=== PATIENT | male | born 1990 | race American Indian/Alaskan Native ===

== ENCOUNTER 2016-11-11 14:39 | Emergency (ER) | payer BC ==
[2016-11-11 15:10] VITALS: TEMP 99; BMI 27.1
[2016-11-11 15:58] LABS: BASO # 0.01 K/mm3 (0.0-2.0); BASO % 0.1 % (0.0-3.0); EOS # 0.1 (0.0-0.7); EOS % 1.2 % (1.5-5.0); GRAN # 8.67 (1.4-6.5); GRAN % 76.8 % (50.0-68.0); HEMATOCRIT 40.5 % (42.0-52.0); LYMPH # 1.8 (1.2-3.4); LYMPH % 15.9 % (22.0-35.0); MEAN CELL VOLUME 87.1 fl (80.0-105.0); MEAN CORPUSCULAR HGB CONC 35.6 g/dl (31.0-37.0); MEAN PLATELET VOLUME 9.4 fl (7.0-11.0); MONO # 0.7 (0.1-0.6); WHITE BLOOD COUNT 11.3 10^3/ul (4.5-11.0)
--- NOTE | 2016-11-11 16:05 | ED PDOC ---
Arrival/HPI <Pradeep Chávez - Last Filed: 11/11/16 16:45> <LynneAnthony roberto Sukumar - Last Filed: 11/11/16 17:50> - General Chief Complaint: Weakness/Neurological Deficit Time Seen by Provider: 11/11/16 14:46 - History of Present Illness Narrative History of Present Illness (Text): 11/11/16 15:49 25 year old patient with no past medical history except migraines presents to the ED after a syncopal episode approximately 1430 this afternoon. Patient was in a store buying lunch when he got extremely lightheaded and passed out. According to the patient he fall and hit his head on the ground. He believes that he was out for approximately 10 seconds according to what the people around him told him. He states that when he woke back up, he jumped up because he was scared. Patient states that he was sweating when he woke up but remembers not feeling hot or cold. He denies any confusion and states that he knew exactly where he was. Denies any tonic-clonic movements, loss of bowels or biting his tongue. He has felt lightheaded in the past but has never actually passed out before. He says that he is under a lot of stress because he has a lot of people that he is responsible for. Patient states that is currently experiencing a headache in the back of his head and is feeling generalized weakness. It feels like one of his migraines that is really sharp and throbbing in the occipital region of his head. He does not remember if he had a headache before he passed out because he gets the multiple times a week. He treats his headaches by smoking marijuana blunts 3 times per day. Denies f/c, n/v, d/c, sob , cp, numbness, tingling, slurred speech, blurred or double vision. PMH: migraines PSH: none Family: DM - father, brother, aunts and uncles Social: 2-3 cigarettes per day, occasional alcohol (<once/week), smokes 3 marijuana blunts per day, denies any other illicit drug use Allergies: NKDA (Pradeep Chávez) Past Medical History - Provider Review Nursing Documentation Reviewed: Yes - Infectious Disease Hx of Infectious Diseases: None - Past Medical History Past Medical History: No Previous - Psychiatric Hx Depression: No Hx Substance Use: No - Past Surgical History Past Surgical History: No Previous - Anesthesia Hx Anesthesia: No Hx Anesthesia Reactions: No Hx Malignant Hyperthermia: No - Suicidal Assessment Feels Threatened In Home Enviroment: No <Pradeep Chávez - Last Filed: 11/11/16 16:45> Family/Social History - Physician Review Nursing Documentation Reviewed: Yes Family/Social History: Diabetes Smoking Status: Light Smoker < 10 Cigarettes Daily Hx Alcohol Use: No Hx Substance Use: Yes Substance used: Marijuana Route: Smoking/Inhalation Amount: 3 (blunts per day) <Pradeep Chávez - Last Filed: 11/11/16 16:45> Allergies/Home Meds <Pradeep Chávez - Last Filed: 11/11/16 16:45> <Anthony Arias - Last Filed: 11/11/16 17:50> Allergies/Adverse Reactions: Allergies No Known Allergies Allergy (Verified 11/11/16 15:08) Review of Systems - Review of Systems Constitutional: Fatigue. absent: Fevers Eyes: Normal. absent: Photophobia, Eye Pain ENT: Normal Respiratory: absent: SOB Cardiovascular: Syncope. absent: Chest Pain, Palpitations, Edema Gastrointestinal: absent: Abdominal Pain, Constipation, Diarrhea, Nausea, Vomiting Genitourinary Male: absent: Dysuria Musculoskeletal: Back Pain (left hip pain) Skin: Normal Neurological: Normal Endocrine: Diaphoresis (sweating when he woke back up from his syncopal episode) Psychiatric: Normal (states he is under alot of stress) <Pradeep Chávez - Last Filed: 11/11/16 16:45> Physical Exam Vital Signs Reviewed: Yes Temperature: Afebrile Blood Pressure: Hypotensive (on arrival - 121/74 in room during exam) Pulse: Tachycardic (upon arrival - high 80s during exam) Respiratory Rate: Normal Appearance: Positive for: Well-Appearing, Non-Toxic, Comfortable Pain Distress: None Mental Status: Positive for: Alert and Oriented X 3 - Systems Exam Head: Present: Atraumatic, Normocephalic Pupils: Present: PERRL Extroacular Muscles: Present: EOMI Mouth: Present: Moist Mucous Membranes Nose (External): Present: Atraumatic. No: Abrasion Neck: Present: Normal Range of Motion. No: MIDLINE TENDERNESS, JVD Respiratory/Chest: Present: Clear to Auscultation. No: Respiratory Distress, Accessory Muscle Use, Wheezes, Retracting, Tachypneic, Tender to Palpation Cardiovascular: Present: Regular Rate and Rhythm, Normal S1, S2 Abdomen: Present: Tenderness, Normal Bowel Sounds. No: Distention, Peritoneal Signs Back: Present: Other (low back/left hip tenderness to palpation) Upper Extremity: Present: Normal Inspection, NORMAL PULSES. No: Edema Lower Extremity: Present: Normal Inspection. No: Edema, CALF TENDERNESS Neurological: Present: GCS=15, CN II-XII Intact, Speech Normal, Motor Func Grossly Intact, Normal Cerebellar Funct (normal finger to nose, normal heel to white), Memory Normal Skin: Present: Warm, Dry, Normal Color. No: Rashes, Diaphoretic Psychiatric: Present: Alert, Oriented x 3, Normal Insight, Normal Concentration <Pradeep Chávez - Last Filed: 11/11/16 16:45> Medical Decision Making <Pradeep Chávez - Last Filed: 11/11/16 16:45> - EKG Interpretation Interpreted by ED Physician: Yes Type: 12 lead EKG <Anthony Arias - Last Filed: 11/11/16 17:50> ED Course and Treatment: 11/11/16 16:20 Syncope - r/o arrhythmia vs hypoglycemia vs dehydration vs drug induced ( marijuana abuse) - Head CT w/o contrast - unremarkable - Normal Head CT - CXR - normal, no acute disease - EKG - NSR with sinus arrhythmia @87 bpm; normal axis; biphasic p waves ( possible left atrial enlargement) - CBC/CMP - unremarkable - Blood Glucose - 88 Back/Left Hip pain - Lumbar Spine X-ray - normal, no acute fx (Pradeep Chávez) 11/11/16 EKG: Ordered, reviewed, and independently interpreted the EKG. Rate : 87 BPM Rhythm : NSR Interpretation : Sinus arrhythmia and left atrial abnormality. 11/11/16 In agreement with resident note, which includes further HPI details. Patient was seen and evaluated with resident, came up with plan and treatment together. 11/11/16 17:30 Patient is feeling much better. Treated with IVF. He does not feel any lightheadedness or dizziness. He will follow up with Dr. Bañuelos this week. Advised to return to the ED if symptoms worsen or any other concern. (Anthony Arias) - Lab Interpretations Lab Results: 11/11/16 15:40 11/11/16 15:40 Lab Results 11/11/16 15:40: Sodium 143, Potassium 4.1, Chloride 104, Carbon Dioxide 28, Anion Gap 15, BUN 15, Creatinine 1.1, Est GFR ( Amer) > 60, Est GFR (Non- Af Amer) > 60, Random Glucose 69 L, Calcium 9.7, Phosphorus 3.1, Magnesium 1.9, Total Bilirubin 1.1, AST 22, ALT 18, Alkaline Phosphatase 41, Total Protein 7.1 , Albumin 4.5, Globulin 2.6, Albumin/Globulin Ratio 1.7 11/11/16 15:40: WBC 11.3 H, RBC 4.65, Hgb 14.4, Hct 40.5 L, MCV 87.1, MCH 31.0, MCHC 35.6, RDW 13.0, Plt Count 225, MPV 9.4, Gran % 76.8 H, Lymph % (Auto) 15.9 L, Cuming % (Auto) 6.0, Eos % (Auto) 1.2 L, Baso % (Auto) 0.1, Gran # 8.67 H, Lymph # 1.8, Cuming # 0.7 H, Eos # 0.1, Baso # 0.01 11/11/16 15:27: POC Glucose (mg/dL) 88 - RAD Interpretation Radiology Orders: 11/11/16 15:44 CHEST PORTABLE [RAD] Stat 11/11/16 15:45 HEAD W/O CONTRAST [CT] Stat 11/11/16 16:05 LS SPINE WITH OBL > 18 YRS OLD [RAD] Stat - Medication Orders Current Medication Orders: Sodium Chloride (Sodium Chloride 0.9%) 1,000 mls @ 999 mls/hr IV .Q1H1M STA Stop: 11/11/16 18:07 Last Admin: 11/11/16 17:13 Dose: 999 mls/hr <Pradeep Chávez - Last Filed: 11/11/16 16:45> - PA / DRUG AND ALCOHOL COUNSELLOR / Resident Statement / has reviewed & agrees with the documentation as recorded. / has examined the patient and agrees with the treatment plan. - Scribe Statement The provider has reviewed the documentation as recorded by the Scribe <Anthony Arias - Last Filed: 11/11/16 17:50> - Scribe Statement 11/11/2016 Luz Mar Provider Scribe Attestation: All medical record entries made by the Scribe were at my direction and personally dictated by me. I have reviewed the chart and agree that the record accurately reflects my personal performance of the history, physical exam, medical decision making, and the department course for this patient. I have also personally directed, reviewed, and agree with the discharge instructions and disposition. (Anthony Arias) Disposition/Present on Arrival - Present on Arrival Any Indicators Present on Arrival: No History of DVT/PE: No History of Uncontrolled Diabetes: No Urinary Catheter: No History of Decub. Ulcer: No History Surgical Site Infection Following: None - Disposition Have Diagnosis and Disposition been Completed?: Yes Disposition Time: 16:50 Patient Plan: Discharge <Pradeep Chávez - Last Filed: 11/11/16 16:45> <Anthony Arias - Last Filed: 11/11/16 17:50> - Disposition Diagnosis: Syncope Disposition: HOME/ ROUTINE Patient Problems: Current Active Problems Problem Status Onset Syncope Acute Condition: IMPROVED Discharge Instructions (ExitCare): Syncope (ED) Additional Instructions: Mr. Rashid, thank you for letting us take care of you today. Your provider was Dr. Arias/Dr. Chávez. You were treated for Syncope. The emergency medical care you received today was directed at your acute symptoms. If you were prescribed any medication, please fill it and take as directed. It may take several days for your symptoms to resolve. Return to the Emergency Department if your symptoms worsen, do not improve, or if you have any other problems. Please contact your doctor or call one of the physicians/clinics you have been referred to that are listed on the Patient Visit Information form that is included in your discharge packet. Bring any paperwork you were given at discharge with you along with any medications you are taking to your follow up visit. Our treatment cannot replace ongoing medical care by a primary care provider (PCP) outside of the emergency department. Thank you for allowing the [facility] team to be part of your care today. If you had an X-Ray or CT scan: A Radiologist will review the ED reading if any change in treatment is needed we will contact you. If you had a blood, urine, or wound culture: It will take several days for the results, if any change in treatment is needed we will contact you. If you had an STI test: It will take 48 hours for the results. Please call after 1 week if you have not heard back. Prescriptions: Naproxen 500 mg PO BID #20 tab Referrals: Olena Bañuelos MD [Staff Provider] - Follow up with primary Forms: [facility] (H[place]uran), WORK NOTE
[2016-11-11 16:10] LABS: ALB/GLOB RATIO 1.7 (1.1-1.8); ALKALINE PHOSPHATASE 41 U/L (38-126); ALT/SGPT 18 U/L (7-56); AST/SGOT 22 U/L (17-59); BILIRUBIN,TOTAL 1.1 mg/dL (0.2-1.3); BLOOD UREA NITROGEN 15 mg/dL (7-21); CALCIUM 9.7 mg/dL (8.4-10.5); CARBON DIOXIDE 28 mmol/L (21-33); CHLORIDE 104 mmol/L (98-107); GFR AFRICAN-AMERICAN > 60; GLUCOSE,RANDOM 69 mg/dL (70-110); MAGNESIUM 1.9 mg/dL (1.7-2.2); PHOSPHOROUS 3.1 mg/dL (2.5-4.5); POTASSIUM 4.1 mmol/L (3.6-5.0); SODIUM 143 mmol/L (132-148); TOTAL PROTEIN 7.1 g/dL (5.8-8.3)
--- NOTE | 2016-11-11 16:38 | CT ---
PROCEDURE: CT HEAD WITHOUT CONTRAST. HISTORY: syncope, fall hit head COMPARISON: None available. TECHNIQUE: Axial computed tomography images were obtained through the head/brain without intravenous contrast. Radiation dose: Total exam DLP = 725 mGy-cm. This CT exam was performed using one or more of the following dose reduction techniques: Automated exposure control, adjustment of the mA and/or kV according to patient size, and/or use of iterative reconstruction technique. FINDINGS: HEMORRHAGE: No intracranial hemorrhage. BRAIN: No mass effect or edema. No atrophy or chronic microvascular ischemic changes. VENTRICLES: Unremarkable. No hydrocephalus. CALVARIUM: Unremarkable. PARANASAL SINUSES: Unremarkable as visualized. No significant inflammatory changes. MASTOID AIR CELLS: Unremarkable as visualized. No inflammatory changes. OTHER FINDINGS: None. IMPRESSION: Normal CT of the Head.
[2016-11-11] MEDS ORDERED: Sodium Chloride 0.9% 1,000 ML IV STA (17:07)
--- NOTE | 2016-11-11 17:47 | CARD ---
APPROVED REPORT EKG Measurement Heart [id number] <Conclusion> Normal sinus rhythm with sinus arrhythmia Possible Left atrial enlargement Borderline ECG
--- NOTE | 2016-11-11 17:59 | RAD ---
HISTORY: syncope COMPARISON: None available. TECHNIQUE: Chest, one view. FINDINGS: LUNGS: No focal consolidation. PLEURA: No significant pleural effusion identified. No definite pneumothorax . CARDIOVASCULAR: The cardiomediastinal silhouette appears within normal limits of size. OSSEOUS STRUCTURES: No acute osseous abnormality identified. VISUALIZED UPPER ABDOMEN: Unremarkable. OTHER FINDINGS: None. IMPRESSION: No focal consolidation, significant pleural effusion, or definite pneumothorax identified.
[2016-11-11 18:13] VITALS: RESP 18; O2SAT 100
[2016-11-11 18:47] VITALS: BP 117/59; PULSE 76
--- NOTE | 2016-11-12 07:59 | RAD ---
PROCEDURE: Radiographs of the Lumbar Spine. HISTORY: left hip pain COMPARISON: Abdomen pelvis CT 01/22/2013 FINDINGS: BONES: Stable subtle straightening of the lumbar curvature. No fracture or spondylolisthesis identified. No spondylolysis is identified either. DISC SPACES: Unremarkable. OTHER FINDINGS: None. IMPRESSION: Stable subtle straightening of lumbar curvature without fracture or spondylolisthesis appreciable. Extent persist or worsen follow-up MRI suggested.
== END 2016-11-11 18:47 | disposition home or self-care (01) ==
LOC: ED 14:39
DX: R55 Syncope and collapse (principal)
CPT/HCPCS: 70450; 71010; 72110; 80053; 82948; 83735; 84100; 85025; 93005; 99285; J7040